=== PATIENT | male | born 2005 | race Caucasian/White ===

== ENCOUNTER 2025-05-19 17:11 | Outpatient (CLI) | payer SELFPAY ==
[2025-05-19 19:56] LABS: Influenza A QL RT-PCR Negative (Negative); Influenza B QL RT-PCR Negative (Negative); RSV RNA, RT-PCR Negative (Negative); SARS-CoV-2 RNA PCR Negative (Negative)
== END 2025-05-19 17:12 | disposition home or self-care (01) ==
LOC: CHSLAB 17:20
PROVIDERS: PCP Registered Nurse; Visit Provider Registered Nurse
DX: R05.9 Cough, unspecified (principal)
CPT/HCPCS: 87637